=== PATIENT | male | born 1945 | race Caucasian/White ===

== ENCOUNTER 2020-05-15 09:39 | Inpatient (IN) ==
[2020-05-15] MEDS ORDERED: POTASSIUM CHLORIDE RIDER 10 MEQ in PREMIX 1 EACH IV PRN (10:03)
[2020-05-15] MEDS ORDERED: MAGNESIUM SULF RIDER 2 GM in PREMIX 1 EACH IV PRN (10:03)
[2020-05-15] MEDS ORDERED: ASPIRIN 325 MG TABLET PO ONE (10:03)
[2020-05-15] MEDS ORDERED: diphenhydrAMINE CAP 25 MG CAPSULE PO ONE (10:03)
[2020-05-15] MEDS ORDERED: DIAZEPAM 5 MG TABLET PO ONE (10:03)
[2020-05-15] MEDS ORDERED: diphenhydrAMINE CAP 25 MG CAPSULE ONE (10:24)
[2020-05-15] MEDS ORDERED: DIAZEPAM 5 MG TABLET ONE (10:24)
[2020-05-15] MEDS ORDERED: ASPIRIN 325 MG TABLET ONE (10:24)
[2020-05-15] MEDS ORDERED: DEXTROSE 5% NACL 0.45% 1,000 ML IV SCH (10:30)
[2020-05-15] MEDS ORDERED: HEPARIN/NACL 0.9% 2 UNITS/ML 1,000 ML IV ONE (12:14)
[2020-05-15] MEDS ORDERED: LIDOCAINE 1%/EPI INJ 20 ML VIAL ONE (12:20)
[2020-05-15] MEDS ORDERED: fentaNYL 100 MCG/2 ML VIAL ONE (12:43)
[2020-05-15] MEDS ORDERED: MIDAZOLAM 2 MG/2 ML VIAL ONE (12:43)
[2020-05-15] MEDS ORDERED: HYDROmorphone 2 MG/1 ML VIAL IV PRN (13:38)
[2020-05-15] MEDS ORDERED: NITROGLYCERIN SL 0.4 MG TABLET SL PRN (13:38)
[2020-05-15] MEDS ORDERED: fentaNYL 100 MCG/2 ML VIAL IV PRN (13:38)
[2020-05-15] MEDS ORDERED: ONDANSETRON 4 MG/2 ML VIAL IV PRN (13:38)
[2020-05-15] MEDS ORDERED: ALPRAZolam 0.25 MG TABLET PO PRN (20:45)
[2020-05-15] MEDS: ATORVASTATIN 80 MG TABLET PO SCH (21:10)
[2020-05-15] MEDS: METOPROLOL TARTRATE 25 MG TABLET PO SCH (21:10)
[2020-05-15] MEDS: ZOLPIDEM 5 MG TABLET PO PRN (23:57)
[2020-05-16] MEDS ORDERED: CEFUROXIME INJ 1,500 MG in SYRINGE 1 EACH IV ONE (06:35)
[2020-05-16] MEDS ORDERED: GLUCAGON 1 MG VIAL IM PRN (06:35)
[2020-05-16] MEDS ORDERED: DEXTROSE 50% 25 GM/50 ML VIAL IV PRN (06:35)
[2020-05-16] MEDS ORDERED: SODIUM CHLORIDE 0.9% 1,000 ML IV SCH (07:00)
[2020-05-16 07:23] LABS: Basophils % 0.4 % (0.0-0.8); Eosinophils # 0.2 10*3/uL (0.0-0.87); Eosinophils % 2.7 % (0.00-10.9); Hematocrit 41.8 VOL% (42.0-52.0); Immature Granulocytes % 0.5 %; Immature Granulocytes Absolute 0.04 #; Lymphocytes # 1.8 10*3/uL (1.4-4.0); Lymphocytes % 21.9 % (21.2-54.2); Mean Corpuscular HGB Conc 33.5 GM/DL (32-36); Mean Corpuscular Volume 91.3 FL (87-102); Monocytes % 10.9 % (1.7-12.7); Neutrophils % 63.6 % (38.7-73.9); Platelet Count 165 T/CUMM (130-400); Red Blood Count 4.58 MC/CUMM (3.8-5.5); Red Cell Distribution Width 13.2 % (9.3-17.3); White Blood Count 8.1 T/CUMM (4-12)
[2020-05-16 07:30] LABS: ABG Base Excess 1.9 MMOL/L (-2.5-2.5); ABG Oxygen Saturation 95.1 % (95-100); ABG PH 7.411 (7.35-7.45); ABG PO2 74.5 MM HG (80-95); ABG TCO2 23.3 MMOL/L (23-27); Allen Test Positive; Pt O2 Delivery Device Room Air
[2020-05-16 07:52] LABS: Albumin 3.8 G/DL (3.4-5.0); Bilirubin,Total 0.9 MG/DL (0.2-1.0); Calcium 9.6 MG/DL (8.5-10.1); Osmolality,Calculated 276.8 MOS/KG (273-304); Total Protein 8.5 G/DL (6.4-8.3)
[2020-05-16] MEDS ORDERED: MULTIVITAMIN (CENTRUM) TABLET PO SCH (09:00)
[2020-05-16] MEDS ORDERED: SERTRALINE 50 MG TABLET PO SCH (09:00)
[2020-05-16] MEDS ORDERED: PANTOPRAZOLE 40 MG TABLET PO SCH (09:00)
[2020-05-16] MEDS ORDERED: ASCORBIC ACID 500 MG TABLET PO SCH (09:00)
[2020-05-16] MEDS ORDERED: ASPIRIN EC 81 MG TABLET PO SCH (09:00)
[2020-05-16] MEDS ORDERED: OLMESARTAN 20 MG TABLET PO SCH (09:00)
[2020-05-16] MEDS ORDERED: CHLORHEXIDINE 4% SOLN 118 ML BOTTLE TOP SCH (09:00)
[2020-05-16] MEDS: hydroCHLOROthiazide 12.5 MG CAPSULE PO SCH (09:38)
[2020-05-16] MEDS: METOPROLOL TARTRATE 25 MG TABLET PO SCH ×2 (09:39→23:47)
[2020-05-16] MEDS: CHLORHEXIDINE 0.12% ORAL RINSE 60 ML BOTTLE SWISH/SPIT SCH ×2 (09:41→21:06)
[2020-05-16] MEDS ORDERED: CLORAZEPATE 3.75 MG TABLET PO PRN (10:04)
[2020-05-16] MEDS: CHLORHEXIDINE 4% SOLN 118 ML BOTTLE TOP SCH ×2 (14:41→21:07)
[2020-05-16] MEDS: ATORVASTATIN 80 MG TABLET PO SCH (21:04)
[2020-05-16] MEDS: ZOLPIDEM 5 MG TABLET PO PRN (21:30)
[2020-05-17] MEDS ORDERED: VANCOMYCIN 500 MG VIAL ONE (04:21)
[2020-05-17] MEDS ORDERED: PAPAVERINE 60 MG/2 ML VIAL ONE (04:21)
[2020-05-17] MEDS ORDERED: VANCOMYCIN 1,000 MG VIAL ONE (04:22)
[2020-05-17] MEDS: CHLORHEXIDINE 4% SOLN 118 ML BOTTLE TOP SCH (04:58)
[2020-05-17] MEDS ORDERED: SODIUM CHLORIDE 0.9% 1,000 ML IV SCH (05:00)
[2020-05-17 05:39] LABS: Basophils % 0.4 % (0.0-0.8); Eosinophils # 0.3 10*3/uL (0.0-0.87); Eosinophils % 3.4 % (0.00-10.9); Hematocrit 37.7 VOL% (42.0-52.0); Hemoglobin 12.5 GM/DL (14.0-18.0); Immature Granulocytes % 0.4 %; Immature Granulocytes Absolute 0.03 #; Lymphocytes # 1.7 10*3/uL (1.4-4.0); Lymphocytes % 19.4 % (21.2-54.2); Mean Corpuscular HGB Conc 33.2 GM/DL (32-36); Mean Corpuscular Volume 91.7 FL (87-102); Mean Platelet Volume 12.4 FL (9.6-12.0); Monocytes % 10.7 % (1.7-12.7); Neutrophils % 65.7 % (38.7-73.9); Platelet Count 136 T/CUMM (130-400); Red Blood Count 4.11 MC/CUMM (3.8-5.5); Red Cell Distribution Width 12.9 % (9.3-17.3); White Blood Count 8.6 T/CUMM (4-12)
[2020-05-17] MEDS: METOPROLOL TARTRATE 25 MG TABLET PO SCH (05:50)
[2020-05-17] MEDS: hydroCHLOROthiazide 12.5 MG CAPSULE PO SCH (05:51)
[2020-05-17] MEDS ORDERED: LIDOCAINE 1% 5 ML VIAL ONE (05:55)
[2020-05-17] MEDS ORDERED: SUFentanil 250 MCG/5 ML AMP ONE (05:56)
[2020-05-17] MEDS ORDERED: MIDAZOLAM 10 MG/2 ML VIAL ONE (05:57)
[2020-05-17 06:03] LABS: Calcium 9.2 MG/DL (8.5-10.1); Osmolality,Calculated 280.7 MOS/KG (273-304)
[2020-05-17] MEDS ORDERED: CEFUROXIME INJ 1,500 MG in SYRINGE 1 EACH IV ONE (06:30)
[2020-05-17 07:42] LABS: ABG Base Excess 0.5 MMOL/L (-2.5-2.5); ABG HCO3 24.9 MMOL/L (20-26); ABG PCO2 33.6 MM HG (35-48); ABG PH 7.458 (7.35-7.45); ABG TCO2 21.1 MMOL/L (23-27); Glucose Heart Surgery 97 MG/DL (74-106); Hemoglobin Heart Surgery 11.7 G/DL (14.0-18.0); Ionized Calcium Arterial 1.12 MMOL/L (1.21-1.46); PCO2 Patient Temp Arterial 33.6 MMHG; PH Patient Temp Arterial 7.458; Patient Temperature 37 CELCIUS; Potassium Heart/CVR 3.9 MMOL/L (3.5-5.1); Sodium Heart/CVR 140 MMOL/L (135-145)
[2020-05-17 08:03] LABS: Bilirubin,Urine Negative (Negative); Blood, Urine Small mg/dL (Negative); Glucose,Urine (UA) Negative (Negative); Ketones,Urine Negative (Negative); Nitrite,Urine Negative (Negative); Protein,Urine Negative; RBC,Urine 22 /HPF (0-4); Squamous Epithelial Cell,Urine Occasional /HPF (0-10); Urine Appearance CLEAR (Clear); Urine Color Yellow (Yellow); Urine Specific Gravity 1.013 (1.001-1.035); Urine Urobilinogen < 2.0 EU/DL (0.2-1.0); WBC,Urine <1 /HPF (0-6)
[2020-05-17] MEDS ORDERED: SEVOFLURANE 1 UNIT/15 MINUTE INH ONE ×2 (09:02→11:17)
[2020-05-17] MEDS ORDERED: AMINOCAPROIC ACID 5,000 MG/20 ML VIAL ONE (09:02)
[2020-05-17] MEDS ORDERED: NITROGLYCERIN DRIP 50 MG/250 ML BOTTLE IV ONE (09:02)
[2020-05-17] MEDS ORDERED: VECURONIUM 10 MG VIAL IV ONE (09:02)
[2020-05-17] MEDS ORDERED: PHENYLEPHRINE DRIP 20 MG/250 ML PREMIX IV ONE (09:02)
[2020-05-17 09:08] LABS: Hematocrit Heart Surgery 27.6 PERCENT (42-52); Hemoglobin Heart Surgery 8.9 G/DL (14.0-18.0); PCO2 Patient Temp Venous 37.3 MM HG; PH Patient Temp Venous 7.445; PO2 Patient Temp Venous 39.8 MM HG; Potassium Heart/CVR 4.7 MMOL/L (3.5-5.1); VBG Base Excess 1.7 MEQ/L (0-4); VBG HCO3 25.6 MEQ/L (24-28); VBG Oxygen Saturation 76.6 %; VBG PCO2 37.3 MMHG (41-51); VBG PH 7.445; VBG PO2 39.8 MMHG (17-40)
[2020-05-17] MEDS ORDERED: PHENYLEPHRINE DRIP 40 MG/250 ML PREMIX IV ONE (09:27)
[2020-05-17] MEDS ORDERED: SODIUM BICARBONATE 50 MEQ/50 ML VIAL IV ONE ×2 (09:27→10:00)
[2020-05-17] MEDS ORDERED: NITROPRUSSIDE 50 MG/2 ML VIAL ONE (09:27)
[2020-05-17] MEDS ORDERED: CALCIUM CHLORIDE 1,000 MG/10 ML SYRINGE IV ONE (09:28)
[2020-05-17] MEDS ORDERED: POTASSIUM CHLORIDE RIDER 100 ML IV ONE (09:28)
[2020-05-17] MEDS ORDERED: EPINEPHrine 1 MG/10 ML SYRINGE ONE (09:29)
[2020-05-17] MEDS ORDERED: ALBUMIN 5% 12.5 GM/250 ML VIAL IV ONE (09:29)
[2020-05-17] MEDS ORDERED: LIDOCAINE 100 MG/5 ML SYRINGE ONE (09:30)
[2020-05-17] MEDS ORDERED: ATROPINE 1 MG/10 ML SYRINGE ONE (09:30)
[2020-05-17 09:36] LABS: Hemoglobin Heart Surgery 9.4 G/DL (14.0-18.0); PCO2 Patient Temp Venous 33.5 MM HG; PH Patient Temp Venous 7.47; PO2 Patient Temp Venous 38.3 MM HG; Potassium Heart/CVR 5.5 MMOL/L (3.5-5.1); VBG Base Excess 1.1 MEQ/L (0-4); VBG Oxygen Saturation 75.8 %; VBG PCO2 33.5 MMHG (41-51); VBG PH 7.47; VBG PO2 38.3 MMHG (17-40)
[2020-05-17] MEDS ORDERED: THROMBIN TOPICAL (RECOMBINANT) 5,000 UNIT VIAL TOP ONE (09:40)
[2020-05-17] MEDS ORDERED: PROTAMINE SULFATE 250 MG/25 ML VIAL IV ONE (10:00)
[2020-05-17] MEDS ORDERED: MANNITOL 100 GM/500 ML BAG IV ONE (10:00)
[2020-05-17] MEDS ORDERED: ALBUMIN 25% 25 GM/100 ML VIAL IV ONE (10:00)
[2020-05-17] MEDS ORDERED: LIDOCAINE 2% 5 ML VIAL ONE ×2 (10:00→11:17)
[2020-05-17] MEDS ORDERED: DEXTROSE 5% KCL 20 MEQ 20 MEQ/1,000 ML BAG IV ONE (10:00)
[2020-05-17] MEDS ORDERED: methylPREDNISolone SOD SUC 1,000 MG/8 ML VIAL ONE (10:00)
[2020-05-17] MEDS ORDERED: MAGNESIUM SULFATE 5 GM/10 ML VIAL IV ONE (10:00)
[2020-05-17] MEDS ORDERED: HEPARIN 10,000 UNIT/10 ML VIAL ONE (10:00)
[2020-05-17] MEDS ORDERED: FUROSEMIDE 20 MG/2 ML VIAL ONE (10:01)
[2020-05-17] MEDS ORDERED: PROTAMINE SULFATE 50 MG/5 ML VIAL IV ONE ×3 (10:01→10:55)
[2020-05-17 10:06] LABS: ABG Base Excess -0.9 MMOL/L (-2.5-2.5); ABG HCO3 23.7 MMOL/L (20-26); ABG PCO2 35.6 MM HG (35-48); ABG TCO2 20.9 MMOL/L (23-27); Glucose Heart Surgery 162 MG/DL (74-106); Hematocrit Heart Surgery 31.5 PERCENT (42-52); Hemoglobin Heart Surgery 10.2 G/DL (14.0-18.0); Ionized Calcium Arterial 1.25 MMOL/L (1.21-1.46); PCO2 Patient Temp Arterial 35.6 MMHG; Patient Temperature 37 CELCIUS; Potassium Heart/CVR 4.5 MMOL/L (3.5-5.1); Sodium Heart/CVR 136 MMOL/L (135-145)
[2020-05-17] MEDS ORDERED: NITROPRUSSIDE 100 MG in DEXTROSE 5% 250 ML IV PRN (10:34)
[2020-05-17] MEDS ORDERED: INSULIN REGULAR DRIP 100 ML IV SCH (10:34)
[2020-05-17] MEDS ORDERED: MAGNESIUM SULF RIDER 4 GM in PREMIX 1 EACH IV PRN (10:34)
[2020-05-17] MEDS ORDERED: CALCIUM CHLORIDE 1,000 MG/10 ML SYRINGE IV PRN (10:34)
[2020-05-17] MEDS ORDERED: MIDAZOLAM 2 MG/2 ML VIAL IV PRN (10:34)
[2020-05-17] MEDS ORDERED: DEXTROSE 50% 25 GM/50 ML VIAL IV PRN ×2 (10:34)
[2020-05-17] MEDS ORDERED: VECURONIUM 10 MG VIAL IV PRN ×2 (10:34)
[2020-05-17] MEDS ORDERED: LACTATED RINGERS 250 ML IV PRN (10:34)
[2020-05-17] MEDS ORDERED: INSULIN REGULAR 100 UNIT/ML IV PRN (10:34)
[2020-05-17] MEDS ORDERED: MIDAZOLAM 10 MG/2 ML VIAL IV PRN (10:34)
[2020-05-17] MEDS ORDERED: ONDANSETRON 4 MG/2 ML VIAL IV PRN (10:34)
[2020-05-17] MEDS ORDERED: PHENYLEPHRINE DRIP 40 MG/250 ML PREMIX IV PRN (10:34)
[2020-05-17] MEDS ORDERED: MAGNESIUM SULF RIDER 2 GM in PREMIX 1 EACH IV PRN (10:34)
[2020-05-17] MEDS ORDERED: INSULIN REGULAR 100 UNIT/ML IV ONE (10:34)
[2020-05-17] MEDS ORDERED: POTASSIUM CHLORIDE RIDER 10 MEQ in PREMIX 1 EACH IV PRN (10:34)
[2020-05-17] MEDS ORDERED: MORPHINE 10 MG/1 ML VIAL IV PRN (10:34)
[2020-05-17] MEDS ORDERED: CHLORHEXIDINE 4% SOLN 118 ML BOTTLE TOP PRN (10:34)
[2020-05-17] MEDS ORDERED: ACETAMINOPHEN 650 MG SUPP RECTAL PRN (10:34)
[2020-05-17] MEDS ORDERED: SODIUM CHLORIDE 0.45% 1,000 ML IV SCH ×2 (10:34)
[2020-05-17] MEDS ORDERED: LACTATED RINGERS 1,000 ML IV ONE ×4 (11:00→14:00)
[2020-05-17 11:03] LABS: ABG Base Excess -1.4 MMOL/L (-2.5-2.5); ABG HCO3 23.3 MMOL/L (20-26); ABG Oxygen Saturation 99.1 % (95-100); ABG PCO2 38.3 MM HG (35-48); ABG PH 7.392 (7.35-7.45); ABG TCO2 20.9 MMOL/L (23-27); Glucose Heart Surgery 138 MG/DL (74-106); Hematocrit Heart Surgery 33.6 PERCENT (42-52); Hemoglobin Heart Surgery 10.9 G/DL (14.0-18.0); Potassium Heart/CVR 3.7 MMOL/L (3.5-5.1)
[2020-05-17 11:07] LABS: Basophils % 0.2 % (0.0-0.8); Eosinophils # 0.1 10*3/uL (0.0-0.87); Eosinophils % 0.8 % (0.00-10.9); Hematocrit 33.4 VOL% (42.0-52.0); Hemoglobin 11.2 GM/DL (14.0-18.0); Immature Granulocytes % 0.8 %; Immature Granulocytes Absolute 0.09 #; Lymphocytes # 0.9 10*3/uL (1.4-4.0); Lymphocytes % 8.3 % (21.2-54.2); Mean Corpuscular HGB Conc 33.5 GM/DL (32-36); Mean Corpuscular Volume 91.5 FL (87-102); Mean Platelet Volume 12.5 FL (9.6-12.0); Monocytes % 4.7 % (1.7-12.7); Neutrophils % 85.2 % (38.7-73.9); Platelet Count 125 T/CUMM (130-400); Red Blood Count 3.65 MC/CUMM (3.8-5.5); Red Cell Distribution Width 13.1 % (9.3-17.3); White Blood Count 10.9 T/CUMM (4-12)
[2020-05-17] MEDS ORDERED: ETOMIDATE 40 MG/20 ML VIAL IV ONE (11:17)
[2020-05-17] MEDS ORDERED: SODIUM CHLORIDE 0.9% 1,000 ML IV ONE (11:17)
[2020-05-17] MEDS ORDERED: SODIUM CHLORIDE 0.9% 200 ML IV ONE (11:17)
[2020-05-17] MEDS ORDERED: ePHEDrine 50 MG/ML VIAL ONE (11:17)
[2020-05-17] MEDS ORDERED: GLYCOPYRROLATE 0.4 MG/2 ML VIAL ONE (11:17)
[2020-05-17] MEDS ORDERED: MINERAL OIL/PETROLATUM OPH OINT 3.5 GM TUBE ONE (11:19)
[2020-05-17 11:21] LABS: INR 1.1; PT Patient Result 11.7 SECS (9.8-11.9); Partial Thromboplastin Time 30.5 SECS (23.9-33.8)
[2020-05-17 11:34] LABS: Albumin 3.4 G/DL (3.4-5.0); Bilirubin,Total 1.1 MG/DL (0.2-1.0); Calcium 8.9 MG/DL (8.5-10.1); Osmolality,Calculated 283.5 MOS/KG (273-304); Total Protein 6.4 G/DL (6.4-8.3)
[2020-05-17 11:38] LABS: CKMB % 5.5 %
[2020-05-17 11:44] LABS: Troponin I 1.33 NG/ML (0.00-0.045)
[2020-05-17 12:57] LABS: ABG Base Excess 0.2 MMOL/L (-2.5-2.5); ABG HCO3 24.6 MMOL/L (20-26); ABG Oxygen Saturation 98.3 % (95-100); ABG PCO2 40.7 MM HG (35-48); ABG PH 7.396 (7.35-7.45); ABG TCO2 22.5 MMOL/L (23-27); Glucose Heart Surgery 132 MG/DL (74-106); Hemoglobin Heart Surgery 10.7 G/DL (14.0-18.0); Potassium Heart/CVR 3.7 MMOL/L (3.5-5.1)
[2020-05-17] MEDS: POTASSIUM CHLORIDE RIDER 20 MEQ in PREMIX 1 EACH IV PRN ×2 (13:34→19:56)
[2020-05-17] MEDS: ALBUMIN 5% 12.5 GM in PREMIX 1 EACH IV PRN ×2 (15:15→15:58)
[2020-05-17 16:39] LABS: ABG Base Excess -2.1 MMOL/L (-2.5-2.5); ABG HCO3 22.6 MMOL/L (20-26); ABG Oxygen Saturation 98.2 % (95-100); ABG PCO2 44.4 MM HG (35-48); ABG PH 7.337 (7.35-7.45); ABG TCO2 21.8 MMOL/L (23-27); Glucose Heart Surgery 182 MG/DL (74-106); Hematocrit Heart Surgery 30.7 PERCENT (42-52); Hemoglobin Heart Surgery 9.9 G/DL (14.0-18.0); Potassium Heart/CVR 4.3 MMOL/L (3.5-5.1)
[2020-05-17] MEDS: MORPHINE 4 MG/1 ML VIAL IV PRN ×2 (17:00→19:31)
[2020-05-17] MEDS: LACTATED RINGERS 1,000 ML IV ONE ×2 (18:00→19:00)
[2020-05-17] MEDS: CEFUROXIME INJ 1,500 MG in SYRINGE 1 EACH IV SCH (18:31)
[2020-05-17 18:56] LABS: CKMB % 5.1 %
[2020-05-17 18:58] LABS: Troponin I 4.43 NG/ML (0.00-0.045)
[2020-05-17 19:16] LABS: ABG Base Excess -3.2 MMOL/L (-2.5-2.5); ABG HCO3 21.8 MMOL/L (20-26); ABG Oxygen Saturation 99.1 % (95-100); ABG PCO2 39.2 MM HG (35-48); ABG PH 7.357 (7.35-7.45); ABG TCO2 20.1 MMOL/L (23-27); Glucose Heart Surgery 172 MG/DL (74-106); Potassium Heart/CVR 4.1 MMOL/L (3.5-5.1)
[2020-05-17] MEDS: KETOROLAC 30 MG/1 ML VIAL IV SCH (19:53)
[2020-05-17] MEDS: CHLORHEXIDINE 0.12% ORAL RINSE 60 ML BOTTLE SWISH/SPIT SCH (21:53)
[2020-05-17] MEDS ORDERED: FUROSEMIDE 40 MG/4 ML VIAL IV ONE (23:33)
[2020-05-18] MEDS: KETOROLAC 30 MG/1 ML VIAL IV SCH ×2 (02:23→08:10)
[2020-05-18 04:14] LABS: ABG Base Excess -1.1 MMOL/L (-2.5-2.5); ABG HCO3 24.7 MMOL/L (20-26); ABG Oxygen Saturation 93.5 % (95-100); ABG PCO2 45.8 MM HG (35-48); ABG PH 7.349 (7.35-7.45); ABG PO2 75.1 MM HG (80-95); ABG TCO2 26.1 MMOL/L (23-27); Glucose Heart Surgery 115 MG/DL (74-106); Hemoglobin Heart Surgery 9.9 G/DL (14.0-18.0); Potassium Heart/CVR 4.5 MMOL/L (3.5-5.1)
[2020-05-18 04:17] LABS: Basophils % 0.1 % (0.0-0.8); Hematocrit 28.7 VOL% (42.0-52.0); Hemoglobin 9.2 GM/DL (14.0-18.0); Immature Granulocytes % 0.5 %; Immature Granulocytes Absolute 0.09 #; Lymphocytes # 0.8 10*3/uL (1.4-4.0); Lymphocytes % 4.7 % (21.2-54.2); Mean Corpuscular HGB Conc 32.1 GM/DL (32-36); Mean Corpuscular Volume 94.4 FL (87-102); Mean Platelet Volume 12.6 FL (9.6-12.0); Monocytes % 3.8 % (1.7-12.7); Neutrophils % 90.9 % (38.7-73.9); Platelet Count 108 T/CUMM (130-400); Red Blood Count 3.04 MC/CUMM (3.8-5.5); Red Cell Distribution Width 13.4 % (9.3-17.3); White Blood Count 16.4 T/CUMM (4-12)
[2020-05-18 04:49] LABS: Alanine Aminotransferase 19 U/L (16-61); Albumin 3.1 G/DL (3.4-5.0); Alkaline Phosphatase 43 U/L (45-117); Aspartate Amino Transferase 57 U/L (0-37); Bilirubin,Total < 0.39 MG/DL (0.2-1.0); Blood Urea Nitrogen 34 MG/DL (7-18); CKMB % 6.8 %; Calcium 8.1 MG/DL (8.5-10.1); Estimated Glom Filtration Rate 53 ML/MIN; Glucose 114 MG/DL (74-106); Osmolality,Calculated 289.3 MOS/KG (273-304); Total Protein 6.3 G/DL (6.4-8.3)
[2020-05-18 04:55] LABS: Troponin I 12.1 NG/ML (0.00-0.045)
[2020-05-18 05:03] LABS: Atypical Lymphocytes Few; Band Neutrophils 3 % (0-10); Lymphocytes 6 % (20-55); Segmented Neutrophils 86 % (50-85); Total Cells Counted 100
[2020-05-18 05:04] LABS: Hypochromasia Slight; Microcytosis Slight; Platelet Estimate Decreased
[2020-05-18] MEDS ORDERED: FUROSEMIDE 40 MG/4 ML VIAL IV ONE (05:56)
[2020-05-18] MEDS: ALBUMIN 5% 12.5 GM in PREMIX 1 EACH IV PRN (05:59)
[2020-05-18] MEDS: CEFUROXIME INJ 1,500 MG in SYRINGE 1 EACH IV SCH (05:59)
[2020-05-18] MEDS ORDERED: DEXTROSE 50% 25 GM/50 ML VIAL IV PRN ×3 (06:57→09:35)
[2020-05-18] MEDS ORDERED: GLUCAGON 1 MG VIAL IM PRN ×3 (06:57→09:35)
[2020-05-18] MEDS ORDERED: INSULIN REGULAR 100 UNIT/ML SUBCUT SCH (08:00)
[2020-05-18] MEDS: CHLORHEXIDINE 0.12% ORAL RINSE 60 ML BOTTLE SWISH/SPIT SCH ×2 (08:10→21:02)
[2020-05-18] MEDS ORDERED: ACETAMINOPHEN 325 MG TABLET PO PRN (09:35)
[2020-05-18] MEDS ORDERED: MAGNESIUM SULF RIDER 4 GM in PREMIX 1 EACH IV PRN (09:35)
[2020-05-18] MEDS ORDERED: MAGNESIUM HYDROXIDE SUSP 30 ML UDCUP PO PRN (09:35)
[2020-05-18] MEDS ORDERED: ALUMINUM/MAGNES/SIMETH MAX STR 30 ML UDCUP PO PRN (09:35)
[2020-05-18] MEDS ORDERED: POTASSIUM CHLORIDE 20 MEQ TABLET PO PRN (09:35)
[2020-05-18] MEDS ORDERED: MAGNESIUM SULF RIDER 2 GM in PREMIX 1 EACH IV PRN (09:35)
[2020-05-18] MEDS ORDERED: SODIUM CHLOR 0.45% KCL 20 MEQ 20 MEQ/1,000 ML BAG IV SCH (09:35)
[2020-05-18] MEDS: INSULIN REGULAR 100 UNIT/ML SUBCUT SCH ×3 (13:21→20:53)
[2020-05-18] MEDS: CHLORHEXIDINE 4% SOLN 118 ML BOTTLE TOP SCH (13:22)
[2020-05-18] MEDS: oxyCODONE/ACETAMINOPHEN 5-325 MG TABLET PO PRN ×2 (15:16→21:06)
[2020-05-18] MEDS: ATORVASTATIN 80 MG TABLET PO SCH (20:55)
[2020-05-18] MEDS: ZALEPLON 5 MG CAPSULE PO PRN (20:59)
[2020-05-19 04:16] LABS: Basophils % 0.1 % (0.0-0.8); Hematocrit 27.8 VOL% (42.0-52.0); Hemoglobin 9.2 GM/DL (14.0-18.0); Immature Granulocytes % 0.7 %; Immature Granulocytes Absolute 0.13 #; Lymphocytes # 0.7 10*3/uL (1.4-4.0); Lymphocytes % 3.8 % (21.2-54.2); Mean Corpuscular HGB Conc 33.1 GM/DL (32-36); Mean Corpuscular Volume 94.9 FL (87-102); Mean Platelet Volume 13.5 FL (9.6-12.0); Monocytes % 5.9 % (1.7-12.7); Neutrophils % 89.5 % (38.7-73.9); Platelet Count 110 T/CUMM (130-400); Red Blood Count 2.93 MC/CUMM (3.8-5.5); Red Cell Distribution Width 13.4 % (9.3-17.3)
[2020-05-19 04:39] LABS: Bilirubin,Direct 0.14 MG/DL (0.0-0.20); Bilirubin,Indirect 0.6 MG/DL (0.0-1.0); Bilirubin,Total 0.7 MG/DL (0.2-1.0); CKMB % 5.8 %; Calcium 8.3 MG/DL (8.5-10.1); Osmolality,Calculated 291.5 MOS/KG (273-304); Total Protein 6.5 G/DL (6.4-8.3)
[2020-05-19 04:40] LABS: Band Neutrophils 1 % (0-10); Lymphocytes 2 % (20-55); Platelet Estimate Adequate; Segmented Neutrophils 94 % (50-85); Total Cells Counted 100
[2020-05-19 05:01] LABS: Troponin I 8.04 NG/ML (0.00-0.045)
[2020-05-19] MEDS: oxyCODONE/ACETAMINOPHEN 5-325 MG TABLET PO PRN ×3 (05:51→20:58)
[2020-05-19] MEDS ORDERED: FUROSEMIDE 40 MG/4 ML VIAL IV ONE (06:00)
[2020-05-19] MEDS ORDERED: AMIODARONE INJ 450 MG in DEXTROSE 5% 241 ML IV SCH (09:00)
[2020-05-19] MEDS ORDERED: CLORAZEPATE 3.75 MG TABLET PO PRN (09:19)
[2020-05-19] MEDS: PANTOPRAZOLE 40 MG TABLET PO SCH (09:21)
[2020-05-19] MEDS: ASPIRIN EC 81 MG TABLET PO SCH (09:21)
[2020-05-19] MEDS: DOCUSATE SODIUM 100 MG CAPSULE PO SCH (09:21)
[2020-05-19] MEDS: SERTRALINE 50 MG TABLET PO SCH (09:21)
[2020-05-19] MEDS: ASCORBIC ACID 500 MG TABLET PO SCH (09:21)
[2020-05-19] MEDS: FERROUS SULFATE 325 MG TABLET PO SCH (09:21)
[2020-05-19] MEDS: MULTIVITAMIN (CENTRUM) TABLET PO SCH (09:21)
[2020-05-19] MEDS: MORPHINE 4 MG/1 ML VIAL IV PRN ×3 (09:21→17:45)
[2020-05-19] MEDS: CHLORHEXIDINE 0.12% ORAL RINSE 60 ML BOTTLE SWISH/SPIT SCH ×2 (09:22→21:00)
[2020-05-19] MEDS: INSULIN REGULAR 100 UNIT/ML SUBCUT SCH ×3 (09:45→16:40)
[2020-05-19] MEDS: POLYETHYLENE GLYCOL POWDER 17 GM PACK PO SCH (10:55)
[2020-05-19] MEDS: AMIODARONE INJ 450 MG in DEXTROSE 5% 241 ML IV SCH (17:45)
[2020-05-19] MEDS: ATORVASTATIN 80 MG TABLET PO SCH (20:58)
[2020-05-19] MEDS: ZALEPLON 5 MG CAPSULE PO PRN (20:58)
[2020-05-20] MEDS: MORPHINE 4 MG/1 ML VIAL IV PRN ×2 (00:31→08:22)
[2020-05-20] MEDS: INSULIN REGULAR 100 UNIT/ML SUBCUT SCH ×5 (01:14→21:15)
[2020-05-20] MEDS: oxyCODONE/ACETAMINOPHEN 5-325 MG TABLET PO PRN ×3 (03:26→20:53)
[2020-05-20 06:09] LABS: Eosinophils % 0.2 % (0.00-10.9); Hematocrit 26.8 VOL% (42.0-52.0); Hemoglobin 8.7 GM/DL (14.0-18.0); Immature Granulocytes % 0.6 %; Immature Granulocytes Absolute 0.07 #; Lymphocytes # 1.7 10*3/uL (1.4-4.0); Lymphocytes % 13.7 % (21.2-54.2); Mean Corpuscular HGB Conc 32.5 GM/DL (32-36); Mean Corpuscular Volume 94.7 FL (87-102); Mean Platelet Volume 13.9 FL (9.6-12.0); Monocytes % 9.1 % (1.7-12.7); Neutrophils % 76.4 % (38.7-73.9); Platelet Count 110 T/CUMM (130-400); Red Blood Count 2.83 MC/CUMM (3.8-5.5); Red Cell Distribution Width 13.6 % (9.3-17.3); White Blood Count 12.6 T/CUMM (4-12)
[2020-05-20 06:24] LABS: Calcium 7.9 MG/DL (8.5-10.1); Osmolality,Calculated 291.4 MOS/KG (273-304)
[2020-05-20 06:30] LABS: Hypochromasia Slight; Microcytosis 1+; Platelet Estimate Decreased
[2020-05-20 06:31] LABS: Albumin 3.1 G/DL (3.4-5.0); Bilirubin,Direct 0.2 MG/DL (0.0-0.20); Bilirubin,Indirect 0.7 MG/DL (0.0-1.0); Bilirubin,Total 0.9 MG/DL (0.2-1.0); CKMB % 2.8 %; Calcium 8.1 MG/DL (8.5-10.1); Osmolality,Calculated 288.5 MOS/KG (273-304); Total Protein 5.9 G/DL (6.4-8.3)
[2020-05-20 06:33] LABS: Troponin I 4.63 NG/ML (0.00-0.045)
[2020-05-20] MEDS: ONDANSETRON 4 MG/2 ML VIAL IV PRN ×3 (07:00→20:53)
[2020-05-20] MEDS: AMIODARONE 200 MG TABLET PO SCH ×2 (09:28→20:54)
[2020-05-20] MEDS: MULTIVITAMIN (CENTRUM) TABLET PO SCH (10:12)
[2020-05-20] MEDS: ASPIRIN EC 81 MG TABLET PO SCH (10:13)
[2020-05-20] MEDS: DOCUSATE SODIUM 100 MG CAPSULE PO SCH (10:14)
[2020-05-20] MEDS: FERROUS SULFATE 325 MG TABLET PO SCH (10:14)
[2020-05-20] MEDS: ASCORBIC ACID 500 MG TABLET PO SCH (10:15)
[2020-05-20] MEDS: PANTOPRAZOLE 40 MG TABLET PO SCH (10:15)
[2020-05-20] MEDS: POLYETHYLENE GLYCOL POWDER 17 GM PACK PO SCH (10:16)
[2020-05-20] MEDS: SERTRALINE 50 MG TABLET PO SCH (10:16)
[2020-05-20] MEDS: CHLORHEXIDINE 0.12% ORAL RINSE 60 ML BOTTLE SWISH/SPIT SCH ×2 (10:22→20:55)
[2020-05-20] MEDS: AMIODARONE INJ 450 MG in DEXTROSE 5% 241 ML IV SCH ×2 (10:40→11:26)
[2020-05-20] MEDS: ZALEPLON 5 MG CAPSULE PO PRN (20:53)
[2020-05-20] MEDS: ATORVASTATIN 80 MG TABLET PO SCH (20:54)
[2020-05-21] MEDS: oxyCODONE/ACETAMINOPHEN 5-325 MG TABLET PO PRN (01:17)
[2020-05-21 05:44] LABS: Basophils % 0.1 % (0.0-0.8); Eosinophils # 0.1 10*3/uL (0.0-0.87); Hemoglobin 8.7 GM/DL (14.0-18.0); Immature Granulocytes % 0.6 %; Immature Granulocytes Absolute 0.06 #; Lymphocytes # 1.6 10*3/uL (1.4-4.0); Lymphocytes % 15.8 % (21.2-54.2); Mean Corpuscular HGB Conc 32.2 GM/DL (32-36); Mean Corpuscular Volume 95.7 FL (87-102); Mean Platelet Volume 13.6 FL (9.6-12.0); Monocytes % 9.8 % (1.7-12.7); Neutrophils % 72.7 % (38.7-73.9); Platelet Count 118 T/CUMM (130-400); Red Blood Count 2.82 MC/CUMM (3.8-5.5); Red Cell Distribution Width 13.4 % (9.3-17.3); White Blood Count 10.3 T/CUMM (4-12)
[2020-05-21 06:06] LABS: Calcium 8.7 MG/DL (8.5-10.1)
[2020-05-21 06:07] LABS: Hypochromasia 2+; Microcytosis Slight; Osmolality,Calculated 286.5 MOS/KG (273-304); Platelet Estimate Decreased
[2020-05-21] MEDS: ONDANSETRON 4 MG/2 ML VIAL IV PRN ×2 (06:43→17:43)
[2020-05-21] MEDS: INSULIN REGULAR 100 UNIT/ML SUBCUT SCH (09:00)
[2020-05-21] MEDS: MULTIVITAMIN (CENTRUM) TABLET PO SCH (09:01)
[2020-05-21] MEDS: PANTOPRAZOLE 40 MG TABLET PO SCH (09:01)
[2020-05-21] MEDS: ASCORBIC ACID 500 MG TABLET PO SCH (09:01)
[2020-05-21] MEDS: DOCUSATE SODIUM 100 MG CAPSULE PO SCH (09:01)
[2020-05-21] MEDS: SERTRALINE 50 MG TABLET PO SCH (09:02)
[2020-05-21] MEDS: FERROUS SULFATE 325 MG TABLET PO SCH (09:02)
[2020-05-21] MEDS: ASPIRIN EC 81 MG TABLET PO SCH (09:02)
[2020-05-21] MEDS: AMIODARONE 200 MG TABLET PO SCH ×2 (09:02→20:52)
[2020-05-21] MEDS: POLYETHYLENE GLYCOL POWDER 17 GM PACK PO SCH (09:03)
[2020-05-21] MEDS: CHLORHEXIDINE 0.12% ORAL RINSE 60 ML BOTTLE SWISH/SPIT SCH ×2 (09:06→20:53)
[2020-05-21] MEDS ORDERED: LACTULOSE 20 GM/30 ML UDCUP PO ONE (11:12)
[2020-05-21] MEDS ORDERED: LACTULOSE 20 GM/30 ML UDCUP PO PRN (11:12)
[2020-05-21] MEDS: ATORVASTATIN 80 MG TABLET PO SCH (20:52)
[2020-05-21] MEDS: ZALEPLON 5 MG CAPSULE PO PRN (20:52)
[2020-05-22 05:44] LABS: Calcium 8.3 MG/DL (8.5-10.1); Osmolality,Calculated 285.4 MOS/KG (273-304)
[2020-05-22 05:47] LABS: Alanine Aminotransferase 29 U/L (16-61); Albumin 2.8 G/DL (3.4-5.0); Alkaline Phosphatase 60 U/L (45-117); Aspartate Amino Transferase 21 U/L (0-37); Bilirubin,Indirect 0.4 MG/DL (0.0-1.0); Blood Urea Nitrogen 33 MG/DL (7-18); Calcium 8.2 MG/DL (8.5-10.1); Estimated Glom Filtration Rate 69 ML/MIN; Glucose 101 MG/DL (74-106); Osmolality,Calculated 287.3 MOS/KG (273-304); Total Protein 6.5 G/DL (6.4-8.3)
[2020-05-22] MEDS ORDERED: ASPIRIN EC 325 MG TABLET PO SCH (07:37)
[2020-05-22 08:29] LABS: Basophils % 0.1 % (0.0-0.8); Eosinophils # 0.3 10*3/uL (0.0-0.87); Eosinophils % 2.5 % (0.00-10.9); Hematocrit 31.1 VOL% (42.0-52.0); Hemoglobin 10.1 GM/DL (14.0-18.0); Immature Granulocytes % 0.5 %; Immature Granulocytes Absolute 0.05 #; Lymphocytes # 1.1 10*3/uL (1.4-4.0); Lymphocytes % 10.1 % (21.2-54.2); Mean Corpuscular HGB Conc 32.5 GM/DL (32-36); Mean Corpuscular Volume 94.8 FL (87-102); Mean Platelet Volume 12.6 FL (9.6-12.0); Monocytes % 7.8 % (1.7-12.7); Platelet Count 147 T/CUMM (130-400); Red Blood Count 3.28 MC/CUMM (3.8-5.5); Red Cell Distribution Width 13.4 % (9.3-17.3); White Blood Count 10.9 T/CUMM (4-12)
[2020-05-22] MEDS ORDERED: ASPIRIN CHEW 81 MG TABLET PO ONE (08:35)
[2020-05-22] MEDS: ASCORBIC ACID 500 MG TABLET PO SCH (09:13)
[2020-05-22] MEDS: PANTOPRAZOLE 40 MG TABLET PO SCH (09:13)
[2020-05-22] MEDS: SERTRALINE 50 MG TABLET PO SCH (09:13)
[2020-05-22] MEDS: FERROUS SULFATE 325 MG TABLET PO SCH (09:13)
[2020-05-22] MEDS: MULTIVITAMIN (CENTRUM) TABLET PO SCH (09:13)
[2020-05-22] MEDS: DOCUSATE SODIUM 100 MG CAPSULE PO SCH (09:14)
[2020-05-22] MEDS: AMIODARONE 200 MG TABLET PO SCH ×2 (09:14→21:33)
[2020-05-22] MEDS: POLYETHYLENE GLYCOL POWDER 17 GM PACK PO SCH (09:14)
[2020-05-22] MEDS: CHLORHEXIDINE 0.12% ORAL RINSE 60 ML BOTTLE SWISH/SPIT SCH ×2 (09:15→21:35)
[2020-05-22] MEDS: ONDANSETRON 4 MG/2 ML VIAL IV PRN ×2 (09:42→14:45)
[2020-05-22] MEDS: amLODIPine 5 MG TABLET PO SCH (14:14)
[2020-05-22] MEDS ORDERED: METOCLOPRAMIDE 10 MG/2 ML VIAL IV ONE (17:37)
[2020-05-22] MEDS ORDERED: PROMETHAZINE INJ 12.5 MG in SODIUM CHLORIDE 0.9% 50 ML IV PRN (17:38)
[2020-05-22] MEDS ORDERED: PROMETHAZINE 25 MG/1 ML VIAL ONE (17:52)
[2020-05-22] MEDS: ATORVASTATIN 80 MG TABLET PO SCH (21:33)
[2020-05-23 05:40] LABS: Basophils % 0.1 % (0.0-0.8); Eosinophils # 0.3 10*3/uL (0.0-0.87); Eosinophils % 2.3 % (0.00-10.9); Hematocrit 26.5 VOL% (42.0-52.0); Hemoglobin 8.7 GM/DL (14.0-18.0); Immature Granulocytes % 0.8 %; Lymphocytes # 1.3 10*3/uL (1.4-4.0); Lymphocytes % 10.4 % (21.2-54.2); Mean Corpuscular HGB Conc 32.8 GM/DL (32-36); Mean Platelet Volume 13.1 FL (9.6-12.0); Monocytes % 10.8 % (1.7-12.7); Neutrophils % 75.6 % (38.7-73.9); Platelet Count 161 T/CUMM (130-400); Red Blood Count 2.82 MC/CUMM (3.8-5.5); Red Cell Distribution Width 13.3 % (9.3-17.3); White Blood Count 12.3 T/CUMM (4-12)
[2020-05-23 05:59] LABS: Hypochromasia 1+; Microcytosis 1+; Platelet Estimate Adequate
[2020-05-23 06:06] LABS: Blood Urea Nitrogen 24 MG/DL (7-18); Calcium 8.6 MG/DL (8.5-10.1); Estimated Glom Filtration Rate 63 ML/MIN; Glucose 101 MG/DL (74-106); Osmolality,Calculated 282.4 MOS/KG (273-304)
[2020-05-23 06:14] LABS: Albumin 2.7 G/DL (3.4-5.0); Bilirubin,Direct 0.75 MG/DL (0.0-0.20); Bilirubin,Indirect 1.4 MG/DL (0.0-1.0); Bilirubin,Total 2.1 MG/DL (0.2-1.0); Calcium 8.5 MG/DL (8.5-10.1); Osmolality,Calculated 282.4 MOS/KG (273-304); Total Protein 6.6 G/DL (6.4-8.3)
[2020-05-23] MEDS: MULTIVITAMIN (CENTRUM) TABLET PO SCH (09:19)
[2020-05-23] MEDS: AMIODARONE 200 MG TABLET PO SCH (09:19)
[2020-05-23] MEDS: ASCORBIC ACID 500 MG TABLET PO SCH (09:19)
[2020-05-23] MEDS: SERTRALINE 50 MG TABLET PO SCH (09:20)
[2020-05-23] MEDS: PANTOPRAZOLE 40 MG TABLET PO SCH (09:20)
[2020-05-23] MEDS: DOCUSATE SODIUM 100 MG CAPSULE PO SCH (09:20)
[2020-05-23] MEDS: amLODIPine 5 MG TABLET PO SCH (09:20)
[2020-05-23] MEDS: CHLORHEXIDINE 0.12% ORAL RINSE 60 ML BOTTLE SWISH/SPIT SCH (09:20)
[2020-05-23] MEDS: POLYETHYLENE GLYCOL POWDER 17 GM PACK PO SCH (09:20)
[2020-05-23 12:52] VITALS: BP 137/80
== END 2020-05-23 12:45 | disposition home health service (06) | DRG 234 ==
LOC: N.CL 09:39 → N.TELES 15:24 → N.CVR 05-17 10:22 → N.TELES 05-18 14:54
PROVIDERS: ADMIT Internal Medicine Interventional Cardiology; ATTEND Internal Medicine Interventional Cardiology